=== PATIENT | female | born 1985 | race Two or more races ===

== ENCOUNTER 2017-11-04 08:56 | Emergency (ER) | payer MEDICAID ==
[~2017-11-04] VITALS: Ht 160 cm; Wt 79.4 kg
[2017-11-04] MEDS ORDERED: ACETAMINOPHEN 325 MG TAB PO ONE (09:15)
[2017-11-04 09:40] LABS: Urine Pregnacy Test Negative (Negative)
[2017-11-04 09:46] LABS: Urine Bacteria FEW /hpf (None Seen); Urine Blood 1+ /uL (Negative); Urine Mucus FEW (None Seen); Urine Specific Gravity 1.019 (1.001-1.035); Urine WBC 2 /hpf (0 - 5)
[2017-11-04 09:51] LABS: Alcohol, Urine < 3.0 mg/dL (0-5); Amphetamine Screen, Urine NEGATIVE (NEGATIVE); Barbiturate Scree,Urine NEGATIVE (NEGATIVE); Benzodiazephine Screen, Urine NEGATIVE (NEGATIVE); Cannabinoid Screen, Urine NEGATIVE (NEGATIVE); Cocaine Screen, Urine NEGATIVE (NEGATIVE); Opiate Scree,Urine POSITIVE (NEGATIVE); Phencyclidine Screen, Urine NEGATIVE (NEGATIVE)
[2017-11-04] MEDS ORDERED: SODIUM CHLORIDE 0.9% 1,000 ML IV ONE ×2 (10:00→11:29)
[2017-11-04 10:03] LABS: Basophils # (auto) 0.1 uL; Basophils % (auto) 0.5 % (0.0-2.0); Eosinophils # (auto) 0 uL; Eosinophils % (auto) 0.1 % (0.0-7.0); Hemoglobin 14.9 g/dL (12.2-16.2); Mean Corpuscular Volume 96.3 fL (80.0-100.0); Red Cell Distribution Width 12.6 % (11.8-14.3)
[2017-11-04 10:11] LABS: Hematocrit 43.4 % (36.0-46.0); Lymphocytes # (auto) 1.8 uL; Mean Corpuscular Hemoglobin 33.1 pg (28.0-32.0); Mean Corpuscular Hgb Conc. 34.4 g/dL (32.0-36.0); Monocytes # (auto) 0.8 uL; Neutrophils # (auto) 12.6 uL; Neutrophils % (auto) 82.4 % (37.0-80.0); Platelet Count (auto) 210 10^3/uL (140-450); White Blood Cell 15.2 10^3/uL (4.4-10.8)
[2017-11-04 10:23] LABS: Albumin 3.5 g/dL (3.4-5.0); BUN/Creatinine Ratio 8.9; Calcium 8.3 mg/dL (8.5-10.1); Potassium 3.7 mmol/L (3.5-5.1)
[2017-11-04 10:25] LABS: Bilirubin, Total 0.5 mg/dL (0.2-1.0); Total Protein 8.1 g/dL (6.4-8.2)
[2017-11-04] MEDS ORDERED: PROMETHAZINE HCL 25 MG/ML 1ML IV PRN (11:30)
[2017-11-04] MEDS ORDERED: KETOROLAC TROMETH 30 MG/ML 1ML VIAL IV ONE (11:30)
[2017-11-04 11:57] LABS: Magnesium 1.7 mg/dL (1.6-2.6)
[2017-11-04 14:09] VITALS: BP 103/59
== END 2017-11-04 15:30 | disposition home or self-care (01) ==
LOC: ER 08:56
DX: M54.5 Low back pain (principal); Z90.49 Acquired absence of other specified parts of digestive tract
CPT/HCPCS: 36415; 71046; 74176; 80053; 80307; 81001; 81025; 83690; 83735; 84443; 85025; 96374; 96375; 99285; J1885; J2550; J7030; 93005; 96361

== ENCOUNTER 2022-04-06 10:29 | Emergency (ER) | payer MEDICAID ==
[~2022-04-06] VITALS: Ht 157.5 cm; Wt 96.0 kg
[2022-04-06 10:45] VITALS: BP 125/83
[2022-04-06] MEDS ORDERED: ACETAMINOPHEN 325 MG TAB PO ONE (11:00)
[2022-04-06] MEDS ORDERED: IBUPROFEN 600 MG TAB PO ONE (11:00)
[2022-04-06] MEDS ORDERED: cefTRIAXone SOD 1,000 MG VL IM ONE (11:15)
[2022-04-06 12:04] LABS: Urine Bacteria FEW /hpf (None Seen); Urine Blood 1+ /uL (Negative); Urine Hyaline Cast FEW /lpf (0 - 2); Urine Mucus FEW (None Seen); Urine Specific Gravity 1.026 (1.001-1.035); Urine WBC 2 /hpf (0 - 5)
[2022-04-06] MEDS ORDERED: AZIT500T66 PO (12:30)
[2022-04-06] MEDS ORDERED: IBUP800T27 PO (12:30)
== END 2022-04-06 12:38 | disposition home or self-care (01) ==
LOC: ER 10:31
DX: J03.90 Acute tonsillitis, unspecified (principal); Z86.2 Personal history of diseases of the blood and blood-forming organs and certain disorders involving the immune mechanism; Z90.49 Acquired absence of other specified parts of digestive tract; Z79.1 Long term (current) use of non-steroidal anti-inflammatories (NSAID); Z79.2 Long term (current) use of antibiotics
CPT/HCPCS: 81001; 81025; 87070; 87880; 96372; 99283; J0696